=== PATIENT | female | born 1940 | race Caucasian/White ===

== ENCOUNTER 2018-04-19 09:21 | Day surgery (SDC) | payer MEDICARE ==
[2018-04-19] MEDS ORDERED: Midazolam* 1 MG/ML 2 ML VIAL (2 MG) ONE (11:02)
[2018-04-19 11:38] VITALS: BP 105/43
[2018-04-19] MEDS ORDERED: Tropicamide 1% OPTH.SOL* BTL ONE (11:52)
[2018-04-19] MEDS ORDERED: Phenylephrine 2.5% OPTH.SOL* 2 ML BTL ONE (11:52)
[2018-04-19] MEDS ORDERED: Cyclopentolate 1% OPTH.SOL* 2 ML BTL ONE (11:52)
[2018-04-19] MEDS ORDERED: Lidocaine 1%* 5 ML VIAL ONE (11:52)
[2018-04-19] MEDS ORDERED: Tetracaine 0.5% OPTH.SOL 4 ML* 1 DROP BTL ONE (11:52)
[2018-04-19] MEDS ORDERED: Ketorolac 0.5% OPHTH (NF) 0.5 % 5 ML BTL ONE (11:52)
[2018-04-19] MEDS ORDERED: Neomycin/Polymy/Dex OPHTH.OIN* 3.5 GM ONE (11:52)
--- NOTE | 2018-04-19 12:01 | OP ---
DATE OF OPERATION/DATE OF DICTATION: 04/19/2018 - [facility] DATE OF : 1940. SURGEON: Dr. Pritesh Machuca. SUBMARINE DIVER: None. ANESTHESIA: Topical with intravenous sedation. PRE-OP DIAGNOSIS: Cataract, right eye. POST-OP DIAGNOSIS: Cataract, right eye. OPERATIVE PROCEDURE: Phacoemulsification and cataract extraction with posterior chamber intraocular lens implant, right eye. COMPLICATIONS: None. BLOOD LOSS: None. DESCRIPTION OF PROCEDURE: The patient was brought to the operating room and received a small amount of intra-venous sedation. A drop of Tetracaine was placed in her right eye. She was prepped and draped in the usual sterile fashion for ophthalmic surgery and attention was directed to the right eye where a speculum was placed. A paracentesis was created at the 11 o'clock position and 0.1 cc of 1 percent preservative-free Lidocaine was injected into the anterior chamber followed by DisCoVisc. The eye was digitally stabilized while a 2.75 mm keratome was used to create a triplanar clear corneal incision at the 9 o'clock position. A continuous curvilinear capsulorrhexis was created with a cystotome and Utrata forceps. BSS on a cannula was used to hydrodissect the lens from the capsule. Phacoemulsification was performed in a divide-and- conquer technique to create four fragments which were removed. Residual cortical material was removed with irrigation and aspiration. DisCoVisc was used to inflate the capsular bag and an AUOOTO 19.0 diopter lens was folded and inserted into the capsular bag. DisCoVisc was removed using irrigation and aspiration. BSS on a cannula was used to hydrate the corneal stroma and seal the wound. At the end of the case the pupil was round and the lens was centered. The eye was of normal pressure and the wound was water tight. The speculum was removed and topical Maxitrol ointment was placed on the surface of the eye. The eye was closed, patched and shielded and the patient was sent to the recovery room in stable condition with post operative instructions and follow-up appointment given. [id number]/[facility] #: [id number] MTDD
== END 2018-04-19 11:46 | disposition home or self-care (01) ==
LOC: OREAST 09:21
PROVIDERS: ATTEND Ophthalmology
DX: H25.13 Age-related nuclear cataract, bilateral (principal); H25.23 Age-related cataract, morgagnian type, bilateral; I10 Essential (primary) hypertension; J44.9 Chronic obstructive pulmonary disease, unspecified
CPT/HCPCS: A9270-GY; J2250; V2632

== ENCOUNTER 2018-04-26 09:06 | Day surgery (SDC) | payer MEDICARE ==
[~2018-04-26 09:06] MED LIST: Acetaminophen TAB* 325 MG PO PRN; Buffered Lidocaine 0.9% SYRIN* 5 ML/SYR SYRINGE INTRADERM ONE
[2018-04-26] MEDS ORDERED: Midazolam* 1 MG/ML 2 ML VIAL (2 MG) ONE (09:58)
[2018-04-26 10:58] VITALS: BP 115/67
[2018-04-26] MEDS ORDERED: Cyclopentolate 1% OPTH.SOL* 2 ML BTL ONE (14:06)
[2018-04-26] MEDS ORDERED: Phenylephrine 2.5% OPTH.SOL* 2 ML BTL ONE (14:06)
[2018-04-26] MEDS ORDERED: Neomycin/Polymy/Dex OPHTH.OIN* 3.5 GM ONE (14:06)
[2018-04-26] MEDS ORDERED: Tetracaine 0.5% OPTH.SOL 4 ML* 1 DROP BTL ONE (14:06)
[2018-04-26] MEDS ORDERED: Tropicamide 1% OPTH.SOL* BTL ONE (14:06)
[2018-04-26] MEDS ORDERED: Lidocaine 1%* 5 ML VIAL ONE (14:06)
[2018-04-26] MEDS ORDERED: Ketorolac 0.5% OPHTH (NF) 0.5 % 5 ML BTL ONE (14:06)
--- NOTE | 2018-04-27 05:52 | OP ---
DATE OF OPERATION: 04/26/18 - [facility] DATE OF : [birth year]. SURGEON: Dr. Pritesh Machuca. GEAR REPAIR SUPERVISOR: None. ANESTHESIA: Topical with intravenous sedation. PRE-OP DIAGNOSIS: Cataract with astigmatism, left eye. POST-OP DIAGNOSIS: Cataract with astigmatism, left eye. OPERATIVE PROCEDURE: Phacoemulsification and cataract extraction with posterior chamber Toric intraocular lens implant, left eye. COMPLICATIONS: None. BLOOD LOSS: None. DESCRIPTION OF PROCEDURE: The patient was seen preoperatively in the holding area where she was put in a upright position. A heather was made at the 6 o'clock position of the limbus of the left eye. The patient was subsequently brought to the operating room. Here she was given a drop of tetracaine and intravenous sedation. Her eye was then prepped and draped in the usual sterile fashion and attention was directed to the left eye where a speculum was placed. A paracentesis was created at the 5 o'clock position and 0.1 cc of 1% preservative -free lidocaine was injected into the anterior chamber followed by DisCoVisc. The eye was digitally stabilized while a 2.75 mm keratome was used to create a triplanar clear corneal incision at the 3 o'clock position. A continuous curvilinear capsulorrhexis was created with a cystotome and Utrata forceps. BSS on a cannula was used to hydrodissect the lens from the capsule. Phacoemulsification was performed in a gdmeda-[id number] technique to create 4 fragments. The lens was fairly dense, so increasing the power on the ultrasound was necessary. Residual cortical material was removed with irrigation and aspiration. Healon was used to inflate the capsular bag. A Hollingsworth marker was used to heather the 128 degree access on the limbus. A SN6AT6 18.5 diopter lens was folded and inserted into the capsular bag. The lens was stabilized using a Sinskey hook through the paracentesis such that it was aligned at the appropriate access. Irrigation and aspiration was performed to remove viscoelastic from the eye. BSS on a cannula was used to hydrate the corneal stroma and seal the wound. At the end of the case, the pupil was round and the lens was centered, stable and in axial line. The eye pressure appeared normal and the wound was water tight. The speculum was removed and topical Maxitrol ointment was placed on the surface of the eye. The eye was closed, patched and shielded and the patient was sent to the recovery room in stable condition with postoperative instructions and followup appointment given. [id number]/[facility] #: [id number] IRAM
== END 2018-04-26 10:15 | disposition home or self-care (01) ==
LOC: OREAST 09:06
PROVIDERS: ATTEND Ophthalmology
DX: H25.12 Age-related nuclear cataract, left eye (principal); H52.202 Unspecified astigmatism, left eye; J44.9 Chronic obstructive pulmonary disease, unspecified; I10 Essential (primary) hypertension; E03.9 Hypothyroidism, unspecified; F41.9 Anxiety disorder, unspecified
CPT/HCPCS: A9270-GY; J2250; V2787

== ENCOUNTER 2021-10-18 19:49 | Inpatient (IN) ==
[2021-10-18 20:35] LABS: Red Blood Count 4.38 10^6 /uL (3.70-4.87); White Blood Count 8.4 10^3/uL (3.5-10.8)
[2021-10-18 20:36] LABS: ABS Basophils 0.1 10^3/ul (0-0.2); ABS Eosinophils 0.2 10^3/ul (0-0.6); ABS Lymphocytes 2.1 10^3/ul (1.0-4.8); ABS Monocytes 0.6 10^3/ul (0-0.8); ABS Neutrophils 5.4 10^3/ul (1.5-7.7); Eosinophil % 2.7 %; Hematocrit 41 % (35-47); Hemoglobin 13.6 g/dL (12.0-16.0); Lymphocyte % 24.7 %; Mean Corpuscular HGB Conc 33 g/dL (31-36); Mean Corpuscular Hemoglobin 31 pg (27-31); Mean Corpuscular Volume 93 fL (80-97); Mean Platelet Volume 9.2 fL (7.4-10.4); Platelet Count 202 10^3/uL (150-450); Red Cell Distribution Width 13 % (10-15)
[2021-10-18 20:55] LABS: Albumin 3.7 g/dL (3.2-5.2); Albumin/Globulin Ratio 1.3 (1-3); Calcium 9.4 mg/dL (8.6-10.3); Globulin 2.9 g/dL (2-4); Potassium 3.7 mmol/L (3.5-5.0); Total Bilirubin 0.6 mg/dL (0.2-1.0); Total Protein 6.6 g/dL (6.4-8.9); eGFR CKD-EPI 76.7 (>60)
[2021-10-18 20:57] LABS: Troponin I 0.01 ng/mL (<0.03)
[2021-10-18] MEDS ORDERED: Atropine 1 MG/ML INJ 1 ML VIAL IV PUSH PRN (23:05)
[2021-10-19 00:48] LABS: Free T4 0.81 ng/dL (0.61-1.12)
[2021-10-19] MEDS: SPIRIVA Respimat (tiotropium) 2.5 mcg/inh Inhaler INH SCH (08:01)
[2021-10-19 08:28] LABS: Urine Appearance Clear; Urine Bilirubin Negative (Negative); Urine Blood Negative (Negative); Urine Color Yellow; Urine Glucose Negative (Negative); Urine Ketones Trace (Negative); Urine Nitrite Negative (Negative); Urine Protein Negative (Negative); Urine Specific Gravity 1.009 (1.002-1.030); Urine Urobilinogen Negative (Negative)
[2021-10-19] MEDS ORDERED: Albuterol HFA INHALER 8 gm MDI INH PRN (12:11)
[2021-10-20] MEDS ORDERED: NS 0.9% 1000 ml BAG 1,000 ML IV SCH ×2 (06:00→13:30)
[2021-10-20] MEDS: SPIRIVA Respimat (tiotropium) 2.5 mcg/inh Inhaler INH SCH (09:02)
[2021-10-20] MEDS ORDERED: ceFAZolin 2 GM in NS PREMIX 2 GM/100 ML BAG IVPB ONE (13:21)
[2021-10-20] MEDS ORDERED: ceFAZolin VIAL 1 GM in NS 0.9% 50 ML 50 ML IVPB ONE (13:21)
[2021-10-20] MEDS ORDERED: ceFAZolin VIAL 1 GM in NS *SYRINGE* 10 ML IVPB ONE (14:00)
[2021-10-20] MEDS ORDERED: Midazolam 5 mg/5 ml VIAL 1 mg/ml 5 ml VIAL (5 mg) ONE (14:20)
[2021-10-20] MEDS ORDERED: fentaNYL 100 mcg/2 ml 50 MCG/ML VIAL ONE (14:20)
[2021-10-20] MEDS ORDERED: Lidocaine 1% VIAL 10 MG/ML VIAL ONE (14:20)
[2021-10-20] MEDS: ceFAZolin VIAL 1 GM in NS 0.9% 50 ML 50 ML IVPB SCH (23:10)
[2021-10-21] MEDS: ceFAZolin VIAL 1 GM in NS 0.9% 50 ML 50 ML IVPB SCH (06:03)
[2021-10-21 06:39] LABS: Magnesium 1.8 mg/dL (1.9-2.7); Potassium 3.6 mmol/L (3.5-5.0); eGFR CKD-EPI 87.4 (>60)
[2021-10-21] MEDS: SPIRIVA Respimat (tiotropium) 2.5 mcg/inh Inhaler INH SCH (08:10)
[2021-10-21] MEDS ORDERED: Potassium Chlor 20 meq TAB.ER PO ONE (08:28)
[2021-10-21 10:13] LABS: INR 1.31 (0.86-1.15)
[2021-10-21 13:36] VITALS: BP 158/58
== END 2021-10-21 16:10 | disposition home health service (06) | DRG 244 ==
LOC: EDHOLD 19:49 → ED 19:49 → SUATTDRO 22:35 → MEDTELE 10-19 08:23 → SUATTDRO 10-19 17:50 → MEDTELE 10-20 23:35
PROVIDERS: ADMIT Student in an Organized Health Care Education/Training Program; ATTEND Internal Medicine

== ENCOUNTER 2021-12-09 07:08 | Observation (INO) ==
[2021-12-09 08:23] LABS: ABS Lymphocytes 0.7 10^3/ul (1.0-4.8); ABS Monocytes 0.6 10^3/ul (0-0.8); ABS Neutrophils 8.5 10^3/ul (1.5-7.7); Albumin 3.7 g/dL (3.2-5.2); Albumin/Globulin Ratio 1.2 (1-3); C Reactive Protein 5.27 mg/L (<8.01); Calcium 9.4 mg/dL (8.6-10.3); Eosinophil % 0.2 %; Hematocrit 42 % (35-47); Hemoglobin 14.1 g/dL (12.0-16.0); Lymphocyte % 7.4 %; Mean Corpuscular HGB Conc 33 g/dL (31-36); Mean Corpuscular Hemoglobin 31 pg (27-31); Mean Corpuscular Volume 94 fL (80-97); Mean Platelet Volume 9.4 fL (7.4-10.4); Platelet Count 196 10^3/uL (150-450); Potassium 4.4 mmol/L (3.5-5.0); Red Cell Distribution Width 14 % (10-15); Total Protein 6.7 g/dL (6.4-8.9); eGFR CKD-EPI 76.7 (>60)
[2021-12-09 08:24] LABS: Influenza A Molecular Negative (Negative); Influenza B Molecular Negative (Negative); Rapid COVID-19 Molecular Undetected (Undetected)
[2021-12-09 08:25] LABS: Troponin I 0.01 ng/mL (<0.03)
[2021-12-09] MEDS ORDERED: Furosemide 40 mg/4 ml IV VIAL IV SLOW PU ONE (08:29)
[2021-12-09] MEDS ORDERED: Iohexol 350 (CONTRAST) 500 ML MDV IV ONE (08:29)
[2021-12-09] MEDS ORDERED: Albuterol HFA INHALER 8 gm MDI INH PRN (12:00)
[2021-12-09] MEDS ORDERED: Furosemide 40 mg/4 ml IV VIAL IV ONE (18:00)
[2021-12-09 19:57] LABS: Urine Appearance Clear; Urine Bilirubin Negative (Negative); Urine Blood Negative (Negative); Urine Color Straw; Urine Glucose Negative (Negative); Urine Ketones Negative (Negative); Urine Nitrite Negative (Negative); Urine Protein Negative (Negative); Urine Specific Gravity 1.009 (1.002-1.030); Urine Urobilinogen Negative (Negative)
[2021-12-09] MEDS: Mometasone/Formoter 100/5 MDI INH SCH (20:02)
[2021-12-10 05:41] LABS: Calcium 9.1 mg/dL (8.6-10.3); Magnesium 1.9 mg/dL (1.9-2.7); Potassium 3.5 mmol/L (3.5-5.0); eGFR CKD-EPI 85.9 (>60)
[2021-12-10] MEDS: SPIRIVA Respimat (tiotropium) 2.5 mcg/inh Inhaler INH SCH (08:39)
[2021-12-10] MEDS: Mometasone/Formoter 100/5 MDI INH SCH ×2 (08:40→19:56)
[2021-12-10] MEDS: Aspirin EC 81 mg TAB.EC (enteric coated) PO SCH (09:55)
[2021-12-10] MEDS: Furosemide 40 mg/4 ml IV VIAL IV SCH (10:02)
[2021-12-10] MEDS: Polyethylene Glycol 3350 17 GM PACKET PO SCH (10:11)
[2021-12-10] MEDS: Potassium Chlor 20 meq TAB.ER PO SCH (10:11)
[2021-12-11 05:57] LABS: ABS Basophils 0.1 10^3/ul (0-0.2); ABS Eosinophils 0.1 10^3/ul (0-0.6); ABS Lymphocytes 1.5 10^3/ul (1.0-4.8); ABS Monocytes 0.8 10^3/ul (0-0.8); ABS Neutrophils 6.9 10^3/ul (1.5-7.7); Eosinophil % 0.8 %; Hematocrit 46 % (35-47); Hemoglobin 15.4 g/dL (12.0-16.0); Lymphocyte % 16.6 %; Mean Corpuscular HGB Conc 34 g/dL (31-36); Mean Corpuscular Hemoglobin 31 pg (27-31); Mean Corpuscular Volume 93 fL (80-97); Nucleated Red Blood Cells % 0.1; Platelet Count 232 10^3/uL (150-450); Red Blood Count 4.91 10^6 /uL (3.70-4.87); Red Cell Distribution Width 14 % (10-15); White Blood Count 9.3 10^3/uL (3.5-10.8)
[2021-12-11 06:20] LABS: Calcium 9.8 mg/dL (8.6-10.3); Magnesium 2.1 mg/dL (1.9-2.7); Potassium 3.9 mmol/L (3.5-5.0); eGFR CKD-EPI 77.9 (>60)
[2021-12-11] MEDS: SPIRIVA Respimat (tiotropium) 2.5 mcg/inh Inhaler INH SCH (07:50)
[2021-12-11] MEDS: Mometasone/Formoter 100/5 MDI INH SCH (07:51)
[2021-12-11] MEDS: Aspirin EC 81 mg TAB.EC (enteric coated) PO SCH (08:07)
[2021-12-11] MEDS: Polyethylene Glycol 3350 17 GM PACKET PO SCH (08:08)
[2021-12-11] MEDS: Furosemide 40 mg/4 ml IV VIAL IV SCH (08:08)
[2021-12-11] MEDS: Potassium Chlor 20 meq TAB.ER PO SCH (08:08)
[2021-12-11 11:39] VITALS: BP 125/47
== END 2021-12-11 14:42 | disposition home or self-care (01) ==
LOC: EDHOLD 07:08 → ED 07:08 → MEDTELE 14:13
PROVIDERS: ADMIT Internal Medicine; ATTEND Internal Medicine

== ENCOUNTER 2022-04-03 09:37 | Inpatient (IN) ==
[2022-04-03 10:14] LABS: Hematocrit 39 % (35-47); Hemoglobin 12.7 g/dL (12.0-16.0); Mean Corpuscular HGB Conc 33 g/dL (31-36); Mean Corpuscular Hemoglobin 31 pg (27-31); Mean Corpuscular Volume 94 fL (80-97); Mean Platelet Volume 10.1 fL (7.4-10.4); Platelet Count 163 10^3/uL (150-450); Red Blood Count 4.15 10^6 /uL (3.70-4.87); Red Cell Distribution Width 15 % (10-15); White Blood Count 20.8 10^3/uL (3.5-10.8)
[2022-04-03 10:40] LABS: High Sens Troponin Baseline > 24000 pg/mL (<15)
[2022-04-03 10:41] LABS: Urine Appearance Cloudy; Urine Bilirubin Negative (Negative); Urine Blood 3+ (Negative); Urine Color Amber; Urine Glucose Negative (Negative); Urine Ketones Trace (Negative); Urine Nitrite Negative (Negative); Urine Protein 2+(100 mg/dL) (Negative); Urine Specific Gravity 1.025 (1.002-1.030); Urine Urobilinogen Negative (Negative)
[2022-04-03] MEDS ORDERED: Azithromycin 500 mg/250 ml NS 500 MG/250 ML BAG IVPB ONE (10:42)
[2022-04-03] MEDS ORDERED: Cefepime 2 GM in Dextrose 2 GM/50 ML BAG IV ONE (10:42)
[2022-04-03] MEDS ORDERED: Vancomycin 1,250 MG in NS 0.9% 250 ml 250 ML IVPB ONE (10:44)
[2022-04-03 10:49] LABS: Urine Bacteria Absent (Absent); Urine Granular Casts Present (Absent); Urine Red Blood Cell 1+(3-5/hpf) (Absent); Urine White Blood Cell 1+(6-10/hpf) (Absent)
[2022-04-03 10:53] LABS: ABS Lymphocytes 0.4 10^3/ul (1.0-4.8); ABS Neutrophils 19.5 10^3/ul (1.5-7.7); Lymphocyte % 1.9 %
[2022-04-03 10:58] LABS: RBC Morphology Normal (Normal)
[2022-04-03 11:02] LABS: ALT 55 U/L (7-52); AST 214 U/L (13-39); Albumin 3.7 g/dL (3.2-5.2); Albumin/Globulin Ratio 1.2 (1-3); Alcohol, S < 13 mg/dL (<13); Alkaline Phosphatase 61 U/L (35-149); Anion Gap 16 mmol/L (2-11); Blood Urea Nitrogen 35 mg/dL (6-24); CO2 Carbon Dioxide 21 mmol/L (22-32); Calcium 9.9 mg/dL (8.6-10.3); Chloride 100 mmol/L (101-111); Creatine Kinase 1970 U/L (10-223); Globulin 3.1 g/dL (2-4); Glucose 173 mg/dL (70-100); Potassium 4.1 mmol/L (3.5-5.0); Sodium 137 mmol/L (135-145); Total Protein 6.8 g/dL (6.4-8.9); eGFR CKD-EPI 42.3 (>60)
[2022-04-03 11:51] LABS: Activated Partial Thrombo Time 33.5 seconds (26.0-38.0); INR 1.54 (0.86-1.15)
[2022-04-03 12:10] LABS: High Sensitivity Troponin 1 Hr >24000 pg/mL (<15)
[2022-04-03] MEDS ORDERED: Furosemide 40 mg/4 ml IV VIAL IV SLOW PU ONE (12:54)
[2022-04-03] MEDS ORDERED: Vancomycin 1,000 MG in NS 0.9% 250 ml 250 ML IVPB SCH (12:55)
[2022-04-03] MEDS ORDERED: Albuterol 2.5mg/3 ml (0.083%) NEB.SOLN INH PRN (13:02)
[2022-04-03] MEDS ORDERED: Vancomycin per Pharmacy 1 EA NOTE FOLLOW UP PRN ×2 (13:12→13:19)
[2022-04-03] MEDS ORDERED: Norepinephrine 16MCG/ML BAGD5W 4,000 MCG/250 ML BAG IV ONE (14:20)
[2022-04-03] MEDS ORDERED: Propofol 10 mg/ml 100 ML BTL 100 ML ONE (14:20)
[2022-04-03] MEDS: Lactated Ringers 1000 ml BAG 1,000 ML IV ONE ×6 (14:25→17:08)
[2022-04-03 14:28] LABS: Magnesium 1.9 mg/dL (1.9-2.7)
[2022-04-03] MEDS ORDERED: Succinylcholine 200 mg VIAL 20 mg/ml 10 ml VIAL (200 mg) ONE (14:30)
[2022-04-03] MEDS ORDERED: Etomidate 40 mg/20 ml (2 MG/ML) 20 ml VIAL (40 mg) ONE (14:38)
[2022-04-03 14:45] LABS: INR 1.76 (0.86-1.15)
[2022-04-03] MEDS: Albuterol/Ipratropium NEB.SOL (2.5/0.5 MG) 3 ML NEB.SOLN INH SCH ×3 (14:56→23:08)
[2022-04-03] MEDS ORDERED: Norepinephrine 16MCG/ML BAGD5W 4,000 MCG/250 ML BAG IV SCH (15:00)
[2022-04-03] MEDS ORDERED: Norepinephrine 16MCG/ML BAG NS 4,000 MCG/250 ML BAG IV SCH (15:00)
[2022-04-03] MEDS ORDERED: Propofol 10 mg/ml 100 ML BTL 100 ML IV SCH (15:00)
[2022-04-03 15:08] LABS: eGFR CKD-EPI 38.4 (>60)
[2022-04-03 15:31] LABS: Urine Appearance Turbid; Urine Bilirubin Negative (Negative); Urine Blood 3+ (Negative); Urine Color Amber; Urine Glucose Negative (Negative); Urine Ketones Negative (Negative); Urine Nitrite Negative (Negative); Urine Protein 2+(100 mg/dL) (Negative); Urine Specific Gravity 1.017 (1.002-1.030); Urine Urobilinogen Negative (Negative)
[2022-04-03 15:39] LABS: Urine Bacteria Absent (Absent); Urine Red Blood Cell 1+(3-5/hpf) (Absent); Urine White Blood Cell 1+(6-10/hpf) (Absent)
[2022-04-03] MEDS ORDERED: LACTATED RINGERS IV ONE (16:00)
[2022-04-03] MEDS ORDERED: Perflutren Lipid Microsphere 3 ML VIAL ONE (16:01)
[2022-04-03] MEDS: Chlorhexidine MOUTHWASH 0.12% 15 ML UDC TOPICAL SCH ×3 (16:04→23:42)
[2022-04-03] MEDS: Pantoprazole VIAL 40 MG VIAL IV SCH (16:04)
[2022-04-03] MEDS: Acetaminophen IV 1 GM/100ML 100 ML IV PRN (16:12)
[2022-04-03] MEDS: Propofol 10 mg/ml 100 ML BTL 100 ML IV SCH (16:15)
[2022-04-03] MEDS: Lactated Ringers 1000 ml BAG 1,000 ML IV SCH (17:08)
[2022-04-03 17:14] LABS: Potassium 4.1 mmol/L (3.5-5.0)
[2022-04-03 18:02] LABS: Urine Creatinine Concentration 105.08 mg/dL
[2022-04-03] MEDS: Mometasone/Formoter 100/5 MDI INH SCH (19:18)
[2022-04-03 21:53] LABS: Calcium 8.7 mg/dL (8.6-10.3); Potassium 4.2 mmol/L (3.5-5.0)
[2022-04-03] MEDS: Heparin 5000 UNITS/ML 1 mL VIAL IV SCH (22:39)
[2022-04-03] MEDS: Heparin DRIP 25,000 UNITS BAG 25,000 UNITS/500 ML BAG IV SCH (22:40)
[2022-04-03] MEDS: Cefepime 2 GM in Dextrose 2 GM/50 ML BAG IV SCH (23:42)
[2022-04-04] MEDS: Chlorhexidine MOUTHWASH 0.12% 15 ML UDC TOPICAL SCH ×6 (01:58→23:00)
[2022-04-04] MEDS: Albuterol/Ipratropium NEB.SOL (2.5/0.5 MG) 3 ML NEB.SOLN INH SCH ×5 (02:51→19:17)
[2022-04-04 04:59] LABS: Hematocrit 34 % (35-47); Hemoglobin 11.2 g/dL (12.0-16.0); Mean Corpuscular HGB Conc 33 g/dL (31-36); Mean Corpuscular Hemoglobin 30 pg (27-31); Mean Corpuscular Volume 92 fL (80-97); Mean Platelet Volume 9.6 fL (7.4-10.4); Platelet Count 114 10^3/uL (150-450); Red Cell Distribution Width 15 % (10-15); White Blood Count 16.9 10^3/uL (3.5-10.8)
[2022-04-04 05:10] LABS: ABS Lymphocytes 0.8 10^3/ul (1.0-4.8); ABS Monocytes 0.4 10^3/ul (0-0.8); ABS Neutrophils 15.7 10^3/ul (1.5-7.7); Eosinophil % 0.2 %; Lymphocyte % 4.6 %
[2022-04-04] MEDS: Acetaminophen IV 1 GM/100ML 100 ML IV PRN ×2 (05:17→12:27)
[2022-04-04] MEDS: Lactated Ringers 1000 ml BAG 1,000 ML IV SCH (05:21)
[2022-04-04] MEDS: Propofol 10 mg/ml 100 ML BTL 100 ML IV SCH (06:12)
[2022-04-04 06:29] LABS: Albumin 2.8 g/dL (3.2-5.2); Direct Bilirubin 0.3 mg/dL (0.03-0.18)
[2022-04-04 06:35] LABS: Albumin/Globulin Ratio 1.1 (1-3); Globulin 2.6 g/dL (2-4); Total Protein 5.4 g/dL (6.4-8.9)
[2022-04-04 07:05] LABS: Calcium 8.5 mg/dL (8.6-10.3); Indirect Bilirubin 0.7 mg/dL (0.3-1.0); Potassium 4.1 mmol/L (3.5-5.0); eGFR CKD-EPI 41.2 (>60)
[2022-04-04] MEDS: Mometasone/Formoter 100/5 MDI INH SCH ×2 (07:05→19:23)
[2022-04-04] MEDS: Cefepime 2 GM in Dextrose 2 GM/50 ML BAG IV SCH ×2 (10:36→23:20)
[2022-04-04] MEDS: Vancomycin 1000 MG in NS 0.9% 250 ML IVPB SCH (12:27)
[2022-04-04] MEDS: Pantoprazole VIAL 40 MG VIAL IV SCH (15:34)
[2022-04-04] MEDS ORDERED: fentaNYL 100 mcg/2 ml 50 MCG/ML VIAL IV SLOW PU ONE (15:45)
[2022-04-04] MEDS: fentaNYL 100 mcg/2 ml 50 MCG/ML VIAL ONE ×2 (15:50→16:30)
[2022-04-04] MEDS: Heparin 5000 UNITS/ML 1 mL VIAL IV SCH (18:26)
[2022-04-04 18:43] LABS: Calcium 8.1 mg/dL (8.6-10.3); Potassium 4.1 mmol/L (3.5-5.0); eGFR CKD-EPI 43.2 (>60)
[2022-04-05] MEDS: Albuterol/Ipratropium NEB.SOL (2.5/0.5 MG) 3 ML NEB.SOLN INH SCH ×3 (00:55→19:58)
[2022-04-05] MEDS: Propofol 10 mg/ml 100 ML BTL 100 ML IV SCH (02:53)
[2022-04-05] MEDS: Chlorhexidine MOUTHWASH 0.12% 15 ML UDC TOPICAL SCH ×3 (03:00→13:06)
[2022-04-05] MEDS: Heparin DRIP 25,000 UNITS BAG 25,000 UNITS/500 ML BAG IV SCH (03:06)
[2022-04-05 05:08] LABS: ABS Lymphocytes 0.5 10^3/ul (1.0-4.8); ABS Monocytes 0.4 10^3/ul (0-0.8); Eosinophil % 0.4 %; Hematocrit 31 % (35-47); Hemoglobin 10.5 g/dL (12.0-16.0); Mean Corpuscular HGB Conc 34 g/dL (31-36); Mean Corpuscular Hemoglobin 31 pg (27-31); Mean Corpuscular Volume 92 fL (80-97); Mean Platelet Volume 10.4 fL (7.4-10.4); Platelet Count 115 10^3/uL (150-450); Red Blood Count 3.37 10^6 /uL (3.70-4.87); Red Cell Distribution Width 15 % (10-15)
[2022-04-05 05:53] LABS: Albumin 2.6 g/dL (3.2-5.2); Albumin/Globulin Ratio 1.2 (1-3); Direct Bilirubin 0.3 mg/dL (0.03-0.18); Globulin 2.2 g/dL (2-4); Indirect Bilirubin 0.5 mg/dL (0.3-1.0); Magnesium 2.2 mg/dL (1.9-2.7); Total Bilirubin 0.8 mg/dL (0.2-1.0); Total Protein 4.8 g/dL (6.4-8.9); eGFR CKD-EPI 52.5 (>60)
[2022-04-05] MEDS: Mometasone/Formoter 100/5 MDI INH SCH ×2 (06:52→19:58)
[2022-04-05] MEDS: Heparin 5000 UNITS/ML 1 mL VIAL IV SCH ×2 (06:55→20:50)
[2022-04-05] MEDS: Acetaminophen IV 1 GM/100ML 100 ML IV PRN ×2 (09:26→19:25)
[2022-04-05] MEDS: Cefepime 2 GM in Dextrose 2 GM/50 ML BAG IV SCH (11:09)
[2022-04-05] MEDS: Vancomycin 1000 MG in NS 0.9% 250 ML IVPB SCH (12:01)
[2022-04-05] MEDS ORDERED: Furosemide 40 mg/4 ml IV VIAL IV SLOW PU ONE (12:08)
[2022-04-05] MEDS: Norepinephrine 16MCG/ML BAGD5W 4,000 MCG/250 ML BAG IV SCH (12:23)
[2022-04-05] MEDS: Pantoprazole VIAL 40 MG VIAL IV SCH (14:28)
[2022-04-05] MEDS: cefTRIAXone 2 gm/50 mL D5W 2 GM/50 ML BAG IV SCH (20:54)
[2022-04-06] MEDS: Heparin DRIP 25,000 UNITS BAG 25,000 UNITS/500 ML BAG IV SCH (00:30)
[2022-04-06] MEDS: Norepinephrine 16MCG/ML BAGD5W 4,000 MCG/250 ML BAG IV SCH (02:00)
[2022-04-06] MEDS: Acetaminophen IV 1 GM/100ML 100 ML IV PRN (03:20)
[2022-04-06 03:40] LABS: Hematocrit 32 % (35-47); Hemoglobin 10.5 g/dL (12.0-16.0); Mean Corpuscular HGB Conc 33 g/dL (31-36); Mean Corpuscular Hemoglobin 31 pg (27-31); Mean Corpuscular Volume 92 fL (80-97); Mean Platelet Volume 10.5 fL (7.4-10.4); Platelet Count 127 10^3/uL (150-450); Red Blood Count 3.44 10^6 /uL (3.70-4.87); Red Cell Distribution Width 15 % (10-15)
[2022-04-06 04:13] LABS: ABS Lymphocytes 1.2 10^3/ul (1.0-4.8); ABS Monocytes 0.8 10^3/ul (0-0.8); Eosinophil % 0.3 %; Lymphocyte % 8.3 %; Nucleated Red Blood Cells % 0.1
[2022-04-06 04:39] LABS: Calcium 7.9 mg/dL (8.6-10.3); Potassium 3.6 mmol/L (3.5-5.0)
[2022-04-06 05:01] LABS: eGFR CKD-EPI 42.8 (>60)
[2022-04-06] MEDS: Mometasone/Formoter 100/5 MDI INH SCH ×2 (07:41→21:33)
[2022-04-06] MEDS: Albuterol/Ipratropium NEB.SOL (2.5/0.5 MG) 3 ML NEB.SOLN INH SCH (07:43)
[2022-04-06] MEDS: KCL 20 MEQ/100 ML IVPREMIX 20 MEQ/100 ML BAG IV SCH ×2 (08:41→11:08)
[2022-04-06 09:31] LABS: Magnesium 2.3 mg/dL (1.9-2.7)
[2022-04-06 09:36] LABS: Phosphorus 2.6 mg/dL (2.5-5.0)
[2022-04-06] MEDS: Heparin 5000 UNITS/ML 1 mL VIAL IV SCH (10:38)
[2022-04-06] MEDS ORDERED: Vancomycin Trough Check NOTE FOLLOW UP ONE (11:30)
[2022-04-06] MEDS: Pantoprazole VIAL 40 MG VIAL IV SCH ×2 (13:13→20:52)
[2022-04-06 17:14] LABS: Hematocrit 29 % (35-47); Hemoglobin 9.7 g/dL (12.0-16.0); Mean Corpuscular HGB Conc 33 g/dL (31-36); Mean Corpuscular Hemoglobin 31 pg (27-31); Mean Corpuscular Volume 92 fL (80-97); Mean Platelet Volume 10.6 fL (7.4-10.4); Platelet Count 135 10^3/uL (150-450); Red Blood Count 3.18 10^6 /uL (3.70-4.87); Red Cell Distribution Width 15 % (10-15)
[2022-04-06] MEDS: cefTRIAXone 2 gm/50 mL D5W 2 GM/50 ML BAG IV SCH (20:37)
[2022-04-06 23:48] LABS: Urine Appearance Cloudy; Urine Bilirubin Negative (Negative); Urine Blood 2+ (Negative); Urine Color Yellow; Urine Glucose Negative (Negative); Urine Ketones Negative (Negative); Urine Nitrite Negative (Negative); Urine Protein 1+(30 mg/dL) (Negative); Urine Specific Gravity 1.018 (1.002-1.030); Urine Urobilinogen Negative (Negative)
[2022-04-06 23:50] LABS: Urine Bacteria 1+ (Absent); Urine Granular Casts Present (Absent); Urine Red Blood Cell Trace(0-2/hpf) (Absent); Urine Squamous Epithelial Cell Present (Absent); Urine White Blood Cell Trace(0-5/hpf) (Absent)
[2022-04-07 05:06] LABS: ABS Eosinophils 0.1 10^3/ul (0-0.6); ABS Lymphocytes 0.9 10^3/ul (1.0-4.8); ABS Monocytes 0.9 10^3/ul (0-0.8); ABS Neutrophils 7.5 10^3/ul (1.5-7.7); Eosinophil % 0.6 %; Hematocrit 30 % (35-47); Lymphocyte % 9.6 %; Mean Corpuscular HGB Conc 34 g/dL (31-36); Mean Corpuscular Hemoglobin 31 pg (27-31); Mean Corpuscular Volume 91 fL (80-97); Mean Platelet Volume 9.9 fL (7.4-10.4); Nucleated Red Blood Cells % 0.1; Platelet Count 133 10^3/uL (150-450); Red Blood Count 3.27 10^6 /uL (3.70-4.87); Red Cell Distribution Width 14 % (10-15); White Blood Count 9.3 10^3/uL (3.5-10.8)
[2022-04-07 05:54] LABS: Magnesium 2.1 mg/dL (1.9-2.7); Phosphorus 2.1 mg/dL (2.5-5.0); Potassium 4.2 mmol/L (3.5-5.0); eGFR CKD-EPI 59.8 (>60)
[2022-04-07] MEDS: Potassium & Sodium Phos 250 mg = 1 PACKET PO SCH ×2 (08:12→20:21)
[2022-04-07] MEDS: Pantoprazole VIAL 40 MG VIAL IV SCH ×2 (08:12→20:21)
[2022-04-07] MEDS ORDERED: Phenylephrine IV 10 MG/ML 1 ml VIAL ONE (11:36)
[2022-04-07] MEDS ORDERED: Lidocaine 1% MPF 5 ML VIAL ONE (12:45)
[2022-04-07] MEDS ORDERED: Propofol 10 MG/ML 20 ML BTL ONE (13:04)
[2022-04-07] MEDS: Mometasone/Formoter 100/5 MDI INH SCH ×2 (14:45→20:20)
[2022-04-07 19:51] LABS: Hematocrit 31 % (35-47); Mean Corpuscular HGB Conc 33 g/dL (31-36); Mean Corpuscular Hemoglobin 30 pg (27-31); Mean Corpuscular Volume 92 fL (80-97); Mean Platelet Volume 9.9 fL (7.4-10.4); Platelet Count 152 10^3/uL (150-450); Red Blood Count 3.33 10^6 /uL (3.70-4.87); Red Cell Distribution Width 14 % (10-15); White Blood Count 9.4 10^3/uL (3.5-10.8)
[2022-04-07] MEDS: cefTRIAXone 2 gm/50 mL D5W 2 GM/50 ML BAG IV SCH (20:21)
[2022-04-08 06:15] LABS: ABS Lymphocytes 1.2 10^3/ul (1.0-4.8); ABS Monocytes 1.1 10^3/ul (0-0.8); ABS Neutrophils 7.1 10^3/ul (1.5-7.7); Eosinophil % 0.5 %; Hematocrit 31 % (35-47); Hemoglobin 10.4 g/dL (12.0-16.0); Lymphocyte % 12.7 %; Mean Corpuscular HGB Conc 34 g/dL (31-36); Mean Corpuscular Hemoglobin 31 pg (27-31); Mean Corpuscular Volume 92 fL (80-97); Mean Platelet Volume 9.7 fL (7.4-10.4); Platelet Count 159 10^3/uL (150-450); Red Blood Count 3.36 10^6 /uL (3.70-4.87); Red Cell Distribution Width 14 % (10-15); White Blood Count 9.5 10^3/uL (3.5-10.8)
[2022-04-08 06:35] LABS: Calcium 8.1 mg/dL (8.6-10.3); Phosphorus 2.7 mg/dL (2.5-5.0); Potassium 4.3 mmol/L (3.5-5.0); eGFR CKD-EPI 71.2 (>60)
[2022-04-08] MEDS: Mometasone/Formoter 100/5 MDI INH SCH ×2 (08:08→19:20)
[2022-04-08] MEDS: Pantoprazole VIAL 40 MG VIAL IV SCH ×2 (08:20→21:16)
[2022-04-08] MEDS: Acetaminophen IV 1 GM/100ML 100 ML IV PRN ×2 (08:20→16:41)
[2022-04-08] MEDS: Enoxaparin 40 MG/0.4 ML SYR SUBCUT SCH (16:40)
[2022-04-08] MEDS: cefTRIAXone 2 gm/50 mL D5W 2 GM/50 ML BAG IV SCH (21:16)
[2022-04-09 05:16] LABS: Hematocrit 33 % (35-47); Hemoglobin 10.7 g/dL (12.0-16.0); Mean Corpuscular HGB Conc 33 g/dL (31-36); Mean Corpuscular Hemoglobin 30 pg (27-31); Mean Corpuscular Volume 92 fL (80-97); Mean Platelet Volume 9.7 fL (7.4-10.4); Platelet Count 244 10^3/uL (150-450); Red Cell Distribution Width 14 % (10-15); White Blood Count 15.2 10^3/uL (3.5-10.8)
[2022-04-09 06:08] LABS: Calcium 8.3 mg/dL (8.6-10.3); Magnesium 1.9 mg/dL (1.9-2.7); Potassium 4.2 mmol/L (3.5-5.0); eGFR CKD-EPI 76.7 (>60)
[2022-04-09] MEDS: Mometasone/Formoter 100/5 MDI INH SCH ×2 (08:23→19:12)
[2022-04-09] MEDS: Acetaminophen IV 1 GM/100ML 100 ML IV PRN ×2 (08:28→16:44)
[2022-04-09] MEDS: Pantoprazole VIAL 40 MG VIAL IV SCH ×2 (08:28→20:42)
[2022-04-09 08:31] LABS: C Reactive Protein 78.35 mg/L (<8.01)
[2022-04-09 10:58] LABS: Albumin 2.9 g/dL (3.2-5.2); Globulin 2.9 g/dL (2-4); Total Bilirubin 0.5 mg/dL (0.2-1.0); Total Protein 5.8 g/dL (6.4-8.9)
[2022-04-09] MEDS: Enoxaparin 40 MG/0.4 ML SYR SUBCUT SCH (16:45)
[2022-04-09] MEDS ORDERED: Iohexol 350 (CONTRAST) 500 ML MDV IV ONE (16:56)
[2022-04-09] MEDS: cefTRIAXone 2 gm/50 mL D5W 2 GM/50 ML BAG IV SCH (20:42)
[2022-04-10 05:09] LABS: ABS Basophils 0.1 10^3/ul (0-0.2); ABS Eosinophils 0.1 10^3/ul (0-0.6); ABS Lymphocytes 1.4 10^3/ul (1.0-4.8); ABS Monocytes 0.8 10^3/ul (0-0.8); ABS Neutrophils 7.7 10^3/ul (1.5-7.7); Eosinophil % 0.6 %; Hematocrit 33 % (35-47); Hemoglobin 11.1 g/dL (12.0-16.0); Lymphocyte % 13.7 %; Mean Corpuscular HGB Conc 34 g/dL (31-36); Mean Corpuscular Hemoglobin 31 pg (27-31); Mean Corpuscular Volume 92 fL (80-97); Mean Platelet Volume 9.5 fL (7.4-10.4); Nucleated Red Blood Cells % 0.1; Platelet Count 269 10^3/uL (150-450); Red Blood Count 3.56 10^6 /uL (3.70-4.87); Red Cell Distribution Width 15 % (10-15); White Blood Count 9.9 10^3/uL (3.5-10.8)
[2022-04-10 05:36] LABS: Calcium 8.5 mg/dL (8.6-10.3); Magnesium 1.9 mg/dL (1.9-2.7); Potassium 4.1 mmol/L (3.5-5.0); eGFR CKD-EPI 75.6 (>60)
[2022-04-10] MEDS: Pantoprazole VIAL 40 MG VIAL IV SCH ×2 (07:26→20:31)
[2022-04-10] MEDS: Mometasone/Formoter 100/5 MDI INH SCH ×2 (07:38→19:04)
[2022-04-10] MEDS ORDERED: Furosemide 40 mg/4 ml IV VIAL IV SLOW PU ONE (09:17)
[2022-04-10 11:37] LABS: Urine Appearance Clear; Urine Bilirubin Negative (Negative); Urine Blood 2+ (Negative); Urine Color Yellow; Urine Glucose Negative (Negative); Urine Ketones Negative (Negative); Urine Nitrite Negative (Negative); Urine Protein Negative (Negative); Urine Specific Gravity 1.013 (1.002-1.030); Urine Urobilinogen Negative (Negative)
[2022-04-10 11:53] LABS: Urine Bacteria 1+ (Absent); Urine Red Blood Cell Trace(0-2/hpf) (Absent); Urine Squamous Epithelial Cell Present (Absent); Urine White Blood Cell 1+(6-10/hpf) (Absent)
[2022-04-10] MEDS ORDERED: Furosemide 20 mg/2 ml IV VIAL IV SLOW PU ONE (12:48)
[2022-04-10 13:14] LABS: C Reactive Protein 70.15 mg/L (<8.01)
[2022-04-10 13:39] LABS: Rapid COVID-19 Molecular Undetected (Undetected)
[2022-04-10] MEDS: Enoxaparin 40 MG/0.4 ML SYR SUBCUT SCH (15:36)
[2022-04-10] MEDS: Acetaminophen IV 1 GM/100ML 100 ML IV PRN (16:06)
[2022-04-10] MEDS: cefTRIAXone 2 gm/50 mL D5W 2 GM/50 ML BAG IV SCH (20:31)
[2022-04-11] MEDS: Mometasone/Formoter 100/5 MDI INH SCH ×2 (07:11→19:49)
[2022-04-11] MEDS: Pantoprazole VIAL 40 MG VIAL IV SCH (08:58)
[2022-04-11] MEDS ORDERED: Furosemide 40 mg/4 ml IV VIAL IV ONE (09:07)
[2022-04-11 10:00] LABS: Calcium 8.1 mg/dL (8.6-10.3); Potassium 4.1 mmol/L (3.5-5.0); eGFR CKD-EPI 83.1 (>60)
[2022-04-11] MEDS: Acetaminophen IV 1 GM/100ML 100 ML IV PRN ×2 (10:00→16:13)
[2022-04-11] MEDS: Lidocaine PATCH 5% PATCH TRANSDERM SCH (13:28)
[2022-04-11] MEDS: Enoxaparin 40 MG/0.4 ML SYR SUBCUT SCH (16:13)
[2022-04-11] MEDS: cefTRIAXone 2 gm/50 mL D5W 2 GM/50 ML BAG IV SCH (21:58)
[2022-04-12] MEDS ORDERED: Albuterol HFA INHALER 8 gm MDI INH PRN (03:26)
[2022-04-12 04:29] LABS: Hematocrit 31 % (35-47); Hemoglobin 10.2 g/dL (12.0-16.0); Mean Corpuscular HGB Conc 33 g/dL (31-36); Mean Corpuscular Hemoglobin 30 pg (27-31); Mean Corpuscular Volume 91 fL (80-97); Mean Platelet Volume 8.9 fL (7.4-10.4); Platelet Count 297 10^3/uL (150-450); Red Blood Count 3.36 10^6 /uL (3.70-4.87); Red Cell Distribution Width 14 % (10-15); White Blood Count 15.4 10^3/uL (3.5-10.8)
[2022-04-12 05:11] LABS: Calcium 8.3 mg/dL (8.6-10.3); Potassium 3.8 mmol/L (3.5-5.0); eGFR CKD-EPI 76.7 (>60)
[2022-04-12] MEDS: Mometasone/Formoter 100/5 MDI INH SCH ×2 (07:37→20:01)
[2022-04-12] MEDS ORDERED: Furosemide 20 mg/2 ml IV VIAL IV SLOW PU ONE (09:30)
[2022-04-12] MEDS: Lidocaine PATCH 5% PATCH TRANSDERM SCH (10:14)
[2022-04-12] MEDS: Enoxaparin 40 MG/0.4 ML SYR SUBCUT SCH (13:33)
[2022-04-12] MEDS: cefTRIAXone 2 gm/50 mL D5W 2 GM/50 ML BAG IV SCH (22:25)
[2022-04-13] MEDS ORDERED: Furosemide 20 mg/2 ml IV VIAL IV ONE (03:24)
[2022-04-13 05:58] LABS: ABS Basophils 0.1 10^3/ul (0-0.2); ABS Eosinophils 0.1 10^3/ul (0-0.6); ABS Monocytes 0.7 10^3/ul (0-0.8); ABS Neutrophils 11.3 10^3/ul (1.5-7.7); Eosinophil % 0.4 %; Hematocrit 30 % (35-47); Hemoglobin 10.2 g/dL (12.0-16.0); Lymphocyte % 7.4 %; Mean Corpuscular HGB Conc 34 g/dL (31-36); Mean Corpuscular Hemoglobin 31 pg (27-31); Mean Corpuscular Volume 92 fL (80-97); Platelet Count 283 10^3/uL (150-450); Red Blood Count 3.31 10^6 /uL (3.70-4.87); Red Cell Distribution Width 14 % (10-15); White Blood Count 13.1 10^3/uL (3.5-10.8)
[2022-04-13 06:26] LABS: Albumin 2.7 g/dL (3.2-5.2); Albumin/Globulin Ratio 0.8 (1-3); C Reactive Protein 120.59 mg/L (<8.01); Calcium 8.1 mg/dL (8.6-10.3); Globulin 3.4 g/dL (2-4); Magnesium 1.5 mg/dL (1.9-2.7); Potassium 3.6 mmol/L (3.5-5.0); Total Bilirubin 0.5 mg/dL (0.2-1.0); Total Protein 6.1 g/dL (6.4-8.9); eGFR CKD-EPI 73.3 (>60)
[2022-04-13] MEDS ORDERED: Potassium Chlor 20 meq TAB.ER PO ONE (06:56)
[2022-04-13] MEDS ORDERED: Magnesium Sulf 4 GM/100 ML IV 4,000 MG/100 ML BAG IVPB ONE (06:56)
[2022-04-13] MEDS: Mometasone/Formoter 100/5 MDI INH SCH ×2 (08:15→19:08)
[2022-04-13] MEDS: Lidocaine PATCH 5% PATCH TRANSDERM SCH (08:16)
[2022-04-13] MEDS: Enoxaparin 40 MG/0.4 ML SYR SUBCUT SCH (17:23)
[2022-04-13] MEDS: cefTRIAXone 2 gm/50 mL D5W 2 GM/50 ML BAG IV SCH (22:02)
[2022-04-14 05:53] LABS: Hematocrit 29 % (35-47); Hemoglobin 9.5 g/dL (12.0-16.0); Mean Corpuscular HGB Conc 33 g/dL (31-36); Mean Corpuscular Hemoglobin 30 pg (27-31); Mean Corpuscular Volume 92 fL (80-97); Mean Platelet Volume 9.1 fL (7.4-10.4); Platelet Count 301 10^3/uL (150-450); Red Blood Count 3.13 10^6 /uL (3.70-4.87); Red Cell Distribution Width 14 % (10-15); White Blood Count 11.5 10^3/uL (3.5-10.8)
[2022-04-14 06:27] LABS: Albumin 2.5 g/dL (3.2-5.2); Albumin/Globulin Ratio 0.8 (1-3); Calcium 8.1 mg/dL (8.6-10.3); Globulin 3.2 g/dL (2-4); Magnesium 2.2 mg/dL (1.9-2.7); Potassium 4.1 mmol/L (3.5-5.0); Total Bilirubin 0.4 mg/dL (0.2-1.0); Total Protein 5.7 g/dL (6.4-8.9); eGFR CKD-EPI 75.6 (>60)
[2022-04-14] MEDS: Mometasone/Formoter 100/5 MDI INH SCH ×2 (07:44→18:13)
[2022-04-14] MEDS: Lidocaine PATCH 5% PATCH TRANSDERM SCH (08:10)
[2022-04-14 08:51] LABS: C Reactive Protein 85.61 mg/L (<8.01)
[2022-04-14] MEDS: Enoxaparin 40 MG/0.4 ML SYR SUBCUT SCH (14:48)
[2022-04-14] MEDS: cefTRIAXone 2 gm/50 mL D5W 2 GM/50 ML BAG IV SCH (20:57)
[2022-04-15 05:59] LABS: Hematocrit 28 % (35-47); Hemoglobin 9.2 g/dL (12.0-16.0); Mean Corpuscular HGB Conc 33 g/dL (31-36); Mean Corpuscular Hemoglobin 30 pg (27-31); Mean Corpuscular Volume 91 fL (80-97); Mean Platelet Volume 9.2 fL (7.4-10.4); Platelet Count 302 10^3/uL (150-450); Red Blood Count 3.06 10^6 /uL (3.70-4.87); Red Cell Distribution Width 14 % (10-15); White Blood Count 10.9 10^3/uL (3.5-10.8)
[2022-04-15 06:38] LABS: Magnesium 1.8 mg/dL (1.9-2.7)
[2022-04-15 06:52] LABS: Ferritin 144.3 ng/mL (11-307)
[2022-04-15] MEDS: Mometasone/Formoter 100/5 MDI INH SCH ×2 (07:23→19:03)
[2022-04-15] MEDS ORDERED: Magnesium Sulfate 2 gm BAG 2 GM/50 ML BAG IVPB ONE (07:37)
[2022-04-15] MEDS ORDERED: Furosemide 20 mg/2 ml IV VIAL IV ONE (08:47)
[2022-04-15] MEDS: Lidocaine PATCH 5% PATCH TRANSDERM SCH (09:24)
[2022-04-15] MEDS: Enoxaparin 40 MG/0.4 ML SYR SUBCUT SCH (14:33)
[2022-04-15] MEDS: cefTRIAXone 2 gm/50 mL D5W 2 GM/50 ML BAG IV SCH (20:20)
[2022-04-16 06:09] LABS: Hematocrit 31 % (35-47); Mean Corpuscular HGB Conc 33 g/dL (31-36); Mean Corpuscular Hemoglobin 30 pg (27-31); Mean Corpuscular Volume 92 fL (80-97); Mean Platelet Volume 8.8 fL (7.4-10.4); Platelet Count 347 10^3/uL (150-450); Red Blood Count 3.35 10^6 /uL (3.70-4.87); Red Cell Distribution Width 14 % (10-15); White Blood Count 10.6 10^3/uL (3.5-10.8)
[2022-04-16 07:48] LABS: Calcium 8.5 mg/dL (8.6-10.3); Magnesium 1.8 mg/dL (1.9-2.7); Potassium 4.2 mmol/L (3.5-5.0); eGFR CKD-EPI 81.7 (>60)
[2022-04-16] MEDS: Mometasone/Formoter 100/5 MDI INH SCH ×2 (08:19→21:27)
[2022-04-16] MEDS: Lidocaine PATCH 5% PATCH TRANSDERM SCH (10:06)
[2022-04-16] MEDS: Enoxaparin 40 MG/0.4 ML SYR SUBCUT SCH (15:40)
[2022-04-16] MEDS: cefTRIAXone 2 gm/50 mL D5W 2 GM/50 ML BAG IV SCH (20:45)
[2022-04-16 21:22] LABS: Rapid COVID-19 Molecular Undetected (Undetected)
[2022-04-17 06:09] LABS: Hematocrit 29 % (35-47); Hemoglobin 9.5 g/dL (12.0-16.0); Mean Corpuscular HGB Conc 32 g/dL (31-36); Mean Corpuscular Hemoglobin 30 pg (27-31); Mean Corpuscular Volume 91 fL (80-97); Mean Platelet Volume 8.8 fL (7.4-10.4); Platelet Count 330 10^3/uL (150-450); Red Blood Count 3.21 10^6 /uL (3.70-4.87); Red Cell Distribution Width 14 % (10-15)
[2022-04-17 06:45] LABS: Calcium 8.3 mg/dL (8.6-10.3); Magnesium 1.7 mg/dL (1.9-2.7); Potassium 4.1 mmol/L (3.5-5.0); eGFR CKD-EPI 89.3 (>60)
[2022-04-17] MEDS: Mometasone/Formoter 100/5 MDI INH SCH (07:40)
[2022-04-17] MEDS ORDERED: Magnesium Sulf 4 GM/100 ML IV 4,000 MG/100 ML BAG IVPB ONE (08:00)
[2022-04-17] MEDS ORDERED: Regadenoson 0.4 MG/5 ML SYRINGE ONE (08:11)
[2022-04-17] MEDS ORDERED: Aminophylline 25 MG/ML VIAL ONE (08:11)
[2022-04-17] MEDS: Lidocaine PATCH 5% PATCH TRANSDERM SCH (09:15)
[2022-04-17] MEDS ORDERED: Iron Sucrose 20 MG/ML 5 ML VIAL IV PUSH ONE (10:26)
[2022-04-17 11:04] VITALS: BP 122/50
[2022-04-17] MEDS ORDERED: Iron Sucrose 200 MG in NS 0.9% 100 ml IVPB ONE (11:30)
== END 2022-04-17 14:00 | DRG 871 ==
LOC: ED 09:37 → SUATTDRO 12:54 → EDHOLD 12:54 → ICU 14:17 → MED 04-07 18:20
PROVIDERS: ADMIT Nurse Practitioner Family; ATTEND Internal Medicine
PROC: O.CATEE (2022-04-07 14:00)

== ENCOUNTER 2022-04-23 16:28 | Inpatient (IN) ==
[2022-04-23] MEDS ORDERED: NS 0.9% 1000 ml BAG 1,000 ML IV ONE (16:29)
[2022-04-23 16:43] LABS: ABS Basophils 0.1 10^3/ul (0-0.2); ABS Eosinophils 0.1 10^3/ul (0-0.6); ABS Lymphocytes 1.2 10^3/ul (1.0-4.8); ABS Monocytes 0.5 10^3/ul (0-0.8); ABS Neutrophils 5.3 10^3/ul (1.5-7.7); Eosinophil % 0.9 %; Hematocrit 30 % (35-47); Hemoglobin 9.5 g/dL (12.0-16.0); Lymphocyte % 17.1 %; Mean Corpuscular HGB Conc 32 g/dL (31-36); Mean Corpuscular Hemoglobin 30 pg (27-31); Mean Corpuscular Volume 93 fL (80-97); Mean Platelet Volume 8.9 fL (7.4-10.4); Platelet Count 318 10^3/uL (150-450); Red Blood Count 3.24 10^6 /uL (3.70-4.87); Red Cell Distribution Width 15 % (10-15); White Blood Count 7.2 10^3/uL (3.5-10.8)
[2022-04-23 16:55] LABS: Activated Partial Thrombo Time 29.5 seconds (26.0-38.0); INR 1.21 (0.86-1.15)
[2022-04-23 17:32] LABS: Albumin/Globulin Ratio 0.8 (1-3); Calcium 8.9 mg/dL (8.6-10.3); Globulin 3.7 g/dL (2-4); HDL Cholesterol 41.8 mg/dL; Potassium 4.2 mmol/L (3.5-5.0); Total Bilirubin 0.4 mg/dL (0.2-1.0); Total Protein 6.7 g/dL (6.4-8.9); eGFR CKD-EPI 79.2 (>60)
[2022-04-23] MEDS ORDERED: Albuterol HFA INHALER 8 gm MDI INH ONE (18:28)
[2022-04-23 20:46] LABS: High Sensitivity Troponin 1 Hr 848 pg/mL (<15)
[2022-04-23] MEDS ORDERED: Heparin DRIP 25,000 UNITS BAG 25,000 UNITS/500 ML BAG IV SCH (21:30)
[2022-04-23] MEDS ORDERED: cefTRIAXone 1 gm/50 mL D5W 1 GM/50 ML BAG IV ONE (21:45)
[2022-04-23] MEDS ORDERED: Heparin 5000 UNITS/ML 1 mL VIAL IV SCH (22:00)
[2022-04-23 22:22] LABS: C Reactive Protein 48.09 mg/L (<8.01)
[2022-04-23 22:26] LABS: ABS Basophils 0.1 10^3/ul (0-0.2); ABS Eosinophils 0.1 10^3/ul (0-0.6); ABS Lymphocytes 1.3 10^3/ul (1.0-4.8); ABS Monocytes 0.6 10^3/ul (0-0.8); ABS Neutrophils 5.6 10^3/ul (1.5-7.7); Hematocrit 30 % (35-47); Hemoglobin 9.5 g/dL (12.0-16.0); Lymphocyte % 17.6 %; Mean Corpuscular HGB Conc 32 g/dL (31-36); Mean Corpuscular Hemoglobin 30 pg (27-31); Mean Corpuscular Volume 93 fL (80-97); Mean Platelet Volume 8.9 fL (7.4-10.4); Platelet Count 321 10^3/uL (150-450); Red Blood Count 3.17 10^6 /uL (3.70-4.87); Red Cell Distribution Width 15 % (10-15); White Blood Count 7.6 10^3/uL (3.5-10.8)
[2022-04-23 22:48] LABS: eGFR CKD-EPI 88.9 (>60)
[2022-04-23 22:49] LABS: High Sensitivity Troponin 3 Hr 274 pg/mL (<15)
[2022-04-23 22:49] LABS: Calcium 8.6 mg/dL (8.6-10.3); Potassium 4.1 mmol/L (3.5-5.0); eGFR CKD-EPI 88.3 (>60)
[2022-04-23] MEDS ORDERED: Furosemide 40 mg/4 ml IV VIAL IV SLOW PU ONE (23:37)
[2022-04-24] MEDS: Mometasone/Formoter 100/5 MDI INH SCH ×2 (08:12→19:41)
[2022-04-24] MEDS ORDERED: fentaNYL 100 mcg/2 ml 50 MCG/ML VIAL ONE (09:34)
[2022-04-24] MEDS ORDERED: Propofol 10 MG/ML 20 ML BTL ONE (09:34)
[2022-04-24] MEDS ORDERED: Lidocaine 2% PF 5 ML VIAL ONE (09:34)
[2022-04-24] MEDS ORDERED: Phenylephrine IV 10 MG/ML 1 ml VIAL ONE (11:06)
[2022-04-24] MEDS: Lidocaine PATCH 5% PATCH TRANSDERM SCH (14:59)
[2022-04-24] MEDS: cefTRIAXone 2 gm/50 mL D5W 2 GM/50 ML BAG IV SCH (20:42)
[2022-04-24] MEDS ORDERED: cefTRIAXone 1 gm/50 mL D5W 1 GM/50 ML BAG IV SCH (21:00)
[2022-04-25] MEDS: Albuterol HFA INHALER 8 gm MDI INH PRN (03:44)
[2022-04-25 05:14] LABS: Hematocrit 31 % (35-47); Hemoglobin 10.1 g/dL (12.0-16.0); Mean Corpuscular HGB Conc 32 g/dL (31-36); Mean Corpuscular Hemoglobin 30 pg (27-31); Mean Corpuscular Volume 92 fL (80-97); Mean Platelet Volume 9.1 fL (7.4-10.4); Platelet Count 333 10^3/uL (150-450); Red Blood Count 3.42 10^6 /uL (3.70-4.87); Red Cell Distribution Width 15 % (10-15); White Blood Count 6.7 10^3/uL (3.5-10.8)
[2022-04-25 05:30] LABS: Calcium 8.5 mg/dL (8.6-10.3); Magnesium 1.6 mg/dL (1.9-2.7); eGFR CKD-EPI 81.7 (>60)
[2022-04-25] MEDS ORDERED: Magnesium Sulf 4 GM/100 ML IV 4,000 MG/100 ML BAG IVPB ONE (07:01)
[2022-04-25] MEDS: Mometasone/Formoter 100/5 MDI INH SCH ×2 (08:24→19:13)
[2022-04-25] MEDS: Lidocaine PATCH 5% PATCH TRANSDERM SCH (08:32)
[2022-04-25] MEDS: cefTRIAXone 2 gm/50 mL D5W 2 GM/50 ML BAG IV SCH (20:28)
[2022-04-26 05:45] LABS: ABS Eosinophils 0.1 10^3/ul (0-0.6); ABS Lymphocytes 0.7 10^3/ul (1.0-4.8); ABS Monocytes 0.5 10^3/ul (0-0.8); ABS Neutrophils 5.1 10^3/ul (1.5-7.7); Eosinophil % 1.2 %; Hematocrit 30 % (35-47); Lymphocyte % 11.1 %; Mean Corpuscular HGB Conc 34 g/dL (31-36); Mean Corpuscular Hemoglobin 31 pg (27-31); Mean Corpuscular Volume 91 fL (80-97); Mean Platelet Volume 8.7 fL (7.4-10.4); Platelet Count 293 10^3/uL (150-450); Red Blood Count 3.26 10^6 /uL (3.70-4.87); Red Cell Distribution Width 15 % (10-15); White Blood Count 6.4 10^3/uL (3.5-10.8)
[2022-04-26 06:06] LABS: Calcium 8.8 mg/dL (8.6-10.3); Potassium 3.8 mmol/L (3.5-5.0); eGFR CKD-EPI 79.2 (>60)
[2022-04-26] MEDS: Mometasone/Formoter 100/5 MDI INH SCH ×2 (07:36→19:05)
[2022-04-26] MEDS: Lidocaine PATCH 5% PATCH TRANSDERM SCH (08:50)
[2022-04-26] MEDS: cefTRIAXone 2 gm/50 mL D5W 2 GM/50 ML BAG IV SCH (20:47)
[2022-04-27] MEDS ORDERED: Lidocaine PATCH 5% PATCH TRANSDERM ONE (00:09)
[2022-04-27 06:15] LABS: Calcium 8.9 mg/dL (8.6-10.3); Magnesium 1.8 mg/dL (1.9-2.7); Potassium 3.8 mmol/L (3.5-5.0); eGFR CKD-EPI 69.2 (>60)
[2022-04-27] MEDS: Lidocaine PATCH 5% PATCH TRANSDERM SCH (07:21)
[2022-04-27] MEDS: Mometasone/Formoter 100/5 MDI INH SCH ×2 (07:25→20:04)
[2022-04-27] MEDS: Albuterol HFA INHALER 8 gm MDI INH PRN (07:40)
[2022-04-27] MEDS ORDERED: Polyethylene Glycol 3350 17 GM PACKET PO PRN (10:31)
[2022-04-27] MEDS ORDERED: Furosemide 20 mg/2 ml IV VIAL IV ONE (12:39)
[2022-04-27] MEDS ORDERED: Calcium Carb (TUMS) 500 mg CHEW TAB PO PRN (15:00)
[2022-04-27] MEDS: cefTRIAXone 2 gm/50 mL D5W 2 GM/50 ML BAG IV SCH (21:55)
[2022-04-28 06:23] LABS: Calcium 8.6 mg/dL (8.6-10.3); Potassium 3.9 mmol/L (3.5-5.0); eGFR CKD-EPI 87.7 (>60)
[2022-04-28] MEDS: Mometasone/Formoter 100/5 MDI INH SCH (08:26)
[2022-04-28] MEDS: Lidocaine PATCH 5% PATCH TRANSDERM SCH (10:11)
[2022-04-28] MEDS ORDERED: cefTRIAXone 2 gm/50 mL D5W 2 GM/50 ML BAG IV ONE (13:36)
[2022-04-28] MEDS ORDERED: cefTRIAXone 2 gm/50 mL D5W 2 GM/50 ML BAG IV SCH (14:00)
[2022-04-28] MEDS ORDERED: cefTRIAXone 2 GM ADDV.VIAL 2 GM in NS 0.9% 100 ml BAG 100 ML IV ONE (14:00)
[2022-04-28 14:54] LABS: C Reactive Protein 23.27 mg/L (<8.01)
[2022-04-28 16:18] VITALS: BP 118/55
[2022-04-28] MEDS ORDERED: cefTRIAXone 2 GM ADDV.VIAL 2 GM in NS 0.9% 100 ml BAG 100 ML IVPB SCH (21:00)
== END 2022-04-28 18:25 | disposition home health service (06) | DRG 64 ==
LOC: EDHOLD 16:28 → ED 16:28 → SUATTDRO 22:33 → MEDTELE 04-24 03:55
PROVIDERS: ADMIT Internal Medicine; ATTEND Internal Medicine
PROC: O.CATEE (2022-04-24 10:00)

== ENCOUNTER 2024-04-29 03:17 | Inpatient (IN) ==
[2024-04-29] MEDS: methylPREDNISolone SOD SUCC 125 mg 2 ML VIAL IV ONE (03:57)
[2024-04-29] MEDS: Albuterol/Ipratropium NEB.SOL (2.5/0.5 MG) 3 ML NEB.SOLN INH ONE (04:01)
[2024-04-29 04:02] LABS: ABS Basophils 0.1 10^3/uL (0.0-0.1); ABS Eosinophils 0.2 10^3/uL (0.0-0.5); ABS Lymphocytes 0.9 10^3/uL (1.0-4.8); ABS Monocytes 0.6 10^3/uL (0.0-0.9); ABS Neutrophils 11.7 10^3/uL (1.5-7.6); ABS Nucleated RBC 0.01 10^3/ul; Eosinophil % 1.8 %; Hematocrit 43.5 % (35-45); Hemoglobin 14.4 g/dL (11.5-14.3); Lymphocyte % 6.9 %; Mean Corpuscular Hemoglobin 29.5 pg (27-33); Mean Corpuscular Hgb Conc 33.1 g/dL (31-36); Mean Platelet Volume 10.4 fL (7.5-11.2); Platelet Count 259 10^3/uL (150-450); Red Blood Count 4.88 10^6/uL (3.63-4.92); Red Cell Distribution Width 15.7 % (12-17); White Blood Count 13.5 10^3/uL (3.8-11.8)
[2024-04-29 04:26] LABS: High Sens Troponin Baseline 23 pg/mL (<15)
[2024-04-29 04:36] LABS: ALT 13 U/L (7-52); Albumin 3.4 g/dL (3.2-5.2); Albumin/Globulin Ratio 1.4 (1-3); Alkaline Phosphatase 93 U/L (35-149); Anion Gap 6 mmol/L (2-16); Blood Urea Nitrogen 24 mg/dL (6-24); CO2 Carbon Dioxide 23 mmol/L (22-32); Calcium 7.3 mg/dL (8.6-10.3); Chloride 108 mmol/L (101-111); Creatinine, Serum 0.75 mg/dL (0.51-0.95); Globulin 2.4 g/dL (2-4); Glucose 138 mg/dL (70-100); Sodium 137 mmol/L (135-145); Total Bilirubin 0.8 mg/dL (0.2-1.0); Total Protein 5.8 g/dL (6.4-8.9); eGFR CKD-EPI 79.4 (>60)
[2024-04-29] MEDS: Furosemide 40 mg/4 ml IV VIAL IV ONE (05:58)
[2024-04-29 06:02] LABS: High Sensitivity Troponin 1 Hr 31 pg/mL (<15)
[2024-04-29] MEDS: cefTRIAXone 1 gm/50 mL D5W 1 GM/50 ML BAG IV ONE (06:02)
[2024-04-29 06:15] LABS: Potassium Redraw 4.7 mmol/L (3.5-5.0)
[2024-04-29] MEDS: Azithromycin 500 mg/250 ml NS 500 MG/250 ML BAG IVPB ONE (06:38)
[2024-04-29] MEDS ORDERED: [UNRECOGNIZED DRUG - OTHER] TOPICAL PRN (06:41)
[2024-04-29] MEDS ORDERED: Albuterol HFA INHALER 8 gm MDI INH PRN (06:41)
[2024-04-29] MEDS ORDERED: Polyethylene Glycol 3350 17 GM PACKET PO PRN (06:41)
[2024-04-29 06:52] LABS: Magnesium 1.8 mg/dL (1.9-2.7)
[2024-04-29 06:52] LABS: C Reactive Protein 1.69 mg/L (<8.01)
[2024-04-29] MEDS: Albuterol/Ipratropium NEB.SOL (2.5/0.5 MG) 3 ML NEB.SOLN INH SCH (07:14)
[2024-04-29] MEDS: Furosemide 40 mg/4 ml IV VIAL IV SLOW PU ONE (07:21)
[2024-04-29] MEDS: Magnesium Sulfate 2 gm BAG 2 GM/50 ML BAG IVPB ONE (09:15)
[2024-04-29] MEDS: DULoxetine DR 30 mg CAP PO SCH (09:19)
[2024-04-29] MEDS: Vitamin THERAPEUTIC TAB PO SCH (09:19)
[2024-04-29] MEDS: Cholecalciferol (VIT D3) 1,000 unit TAB PO SCH (09:20)
[2024-04-29] MEDS ORDERED: Furosemide 40 mg/4 ml IV VIAL IV SLOW PU ONE (10:00)
[2024-04-29] MEDS: SPIRIVA Respimat (tiotropium) 2.5 mcg/inh Inhaler INH SCH (10:26)
[2024-04-29] MEDS ORDERED: Albuterol/Ipratropium NEB.SOL (2.5/0.5 MG) 3 ML NEB.SOLN INH PRN (10:29)
[2024-04-29] MEDS ORDERED: methylPREDNISolone SOD SUCC 40 mg/ml 1 ml VIAL IV SCH (12:00)
[2024-04-29 12:23] LABS: Venous Bicarbonate HCO3 24.7 mmol/L (24-28)
[2024-04-29 12:50] LABS: High Sensitivity Troponin 3 Hr 223 pg/mL (<15)
[2024-04-29 15:38] LABS: High Sensitivity Troponin 3 Hr 238 pg/mL (<15)
[2024-04-29] MEDS: Furosemide 20 mg/2 ml IV VIAL IV SCH (16:13)
[2024-04-30 06:36] LABS: ABS Basophils 0.1 10^3/uL (0.0-0.1); ABS Neutrophils 10.9 10^3/uL (1.5-7.6); Eosinophil % 0.2 %; Hematocrit 37.4 % (35-45); Hemoglobin 12.1 g/dL (11.5-14.3); Lymphocyte % 7.8 %; Mean Corpuscular Hemoglobin 28.3 pg (27-33); Mean Corpuscular Hgb Conc 32.4 g/dL (31-36); Mean Corpuscular Volume 87.4 fL (80-97); Mean Platelet Volume 9.9 fL (7.5-11.2); Platelet Count 208 10^3/uL (150-450); Red Blood Count 4.28 10^6/uL (3.63-4.92); Red Cell Distribution Width 15.1 % (12-17)
[2024-04-30 06:53] LABS: Calcium 8.9 mg/dL (8.6-10.3); Creatinine, Serum 0.91 mg/dL (0.51-0.95); Magnesium 2.1 mg/dL (1.9-2.7)
[2024-04-30] MEDS ORDERED: Lidocaine PATCH 5% PATCH TRANSDERM PRN (15:20)
[2024-05-01] MEDS: Sulfur Hexaflouride MICROSPHR 25 MG VIAL IV ONE (10:43)
[2024-05-01] MEDS: Sulfur Hexaflouride MICROSPHR 25 MG VIAL ONE (10:55)
[2024-05-01 12:47] LABS: Calcium 8.3 mg/dL (8.6-10.3); Creatinine, Serum 0.92 mg/dL (0.51-0.95); Potassium 3.9 mmol/L (3.5-5.0); eGFR CKD-EPI 62.2 (>60)
[2024-05-02 09:25] LABS: Calcium 8.9 mg/dL (8.6-10.3); Creatinine, Serum 0.84 mg/dL (0.51-0.95); Potassium 4.2 mmol/L (3.5-5.0); eGFR CKD-EPI 69.3 (>60)
[2024-05-02 10:14] LABS: Hematocrit 38.9 % (35-45); Hemoglobin 12.8 g/dL (11.5-14.3); Mean Platelet Volume 10.1 fL (7.5-11.2); Platelet Count 223 10^3/uL (150-450); Red Blood Count 4.43 10^6/uL (3.63-4.92); Red Cell Distribution Width 14.9 % (12-17); White Blood Count 11.5 10^3/uL (3.8-11.8)
[2024-05-02 14:05] VITALS: BP 112/51
== END 2024-05-02 17:07 | disposition home health service (06) | DRG 280 ==
LOC: EDHOLD 03:17 → ED 03:17 → SUATTDRO 06:19 → MEDTELE 16:52
PROVIDERS: ADMIT Hospitalist; ATTEND Internal Medicine